=== PATIENT | male | born 2005 | race Caucasian/White ===

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

== ENCOUNTER 2023-06-16 12:35 | Emergency (ER) | payer BC, SELFPAY ==
[2023-06-16 12:42] VITALS: BP 136/75; PULSE 77; RESP 16; TEMP 36.4; O2SAT 100
--- NOTE | 2023-06-16 12:50 | ED.GENADULT ---
HPI - General Adult General Chief complaint: Skin/Abscess/Foreign Body Stated complaint: finger pain and swelling Time Seen by Provider: 06/16/23 12:55 Source: patient, RN notes reviewed and old records reviewed Mode of arrival: ambulatory Limitations: no limitations History of Present Illness HPI narrative: 17 year old male presents to express care with complaints of swelling and redness to the distal dorsal area of left middle finger around his nail bed since yesterday. Patient reports that it is very tender to the medial aspect of his nail bed area where tissue has purplish hue to tissue. Patient reports that he has had a previous occurrence of similar tissue swelling and redness with pain around one of his toes. Patient reports that he has been soaking his left middle finger in warm soapy water since doing so X2 Severity scale (1-10): 8 Pain Consistency: intermittent Relieving factors: immobilization Treatments prior to arrival: other (warm soaks) Related Data Home Medications Medication Instructions Recorded Confirmed guanfacine 1 mg tablet,extended 2 mg PO DAILY 06/16/23 06/16/23 release 24 hr levalbuterol tartrate 45 2 puff inhalation PRN PRN 06/16/23 06/16/23 mcg/actuation aerosol inhaler Shortness Of Breath Or Wheezing Allergies Allergy/AdvReac Type Severity Reaction Status Date / Time No Known Allergies Allergy Mild Verified 06/16/23 12:38 Review of Systems Review of Systems: CONSTITUTIONAL: Denies fever, chills, or sweats. CARDIOVASCULAR: Denies chest pain, palpitations, or edema. RESPIRATORY: Denies cough or dyspnea. GASTROINTESTINAL: Denies abdominal pain, nausea, vomiting SKIN: Reports redness and swelling with pain to his middle left nail bed MUSCULOSKELETAL: Denies myalgia. NEUROLOGIC: Denies headache, numbness All systems reviewed & are unremarkable except as noted in HPI and below PMFSH Past Medical History Medical History ADHD (attention deficit hyperactivity disorder) Asthma Seasonal allergies Family History Family History Other No acute medical problems Social History Social History Smoking status: Never smoker Living arrangements: with family Occupation/Education: student Gender identity (if verbalized by the patient): Male Comments At time of signature, agree with nursing past medical, surgical, social and family history. There is no relevant family history pertinent to the presenting complaint Exam Narrative: GENERAL: Well-appearing, well-nourished, and in no acute distress. HEAD: Normocephalic, atraumatic. EYES: PERRLA and EOMI. ENT: Nares clear, no rhinorrhea or epistaxis. Mucous membranes moist. NECK: Supple.no lymphadenopathy CHEST: Clear to auscultation. No respiratory distress. SAO2 100% on room air HEART: Regular rate and rhythm. No murmur heard. Normal peripheral pulses. ABDOMEN: Soft, nontender, nondistended, normal active bowel sounds. EXTREMITIES: Normal range of motion. No edema. SKIN: Warm, dry. Erythema, induration, tenderness, to tissue medial aspect of left middle finger nail bed with fluctuance of tissue noted. see procedure note. NEURO: No focal deficits. Alert and oriented x3. Course Course Emergency Course: Patient is aware of diagnosis, understands and agrees to treatment plan. Anticipatory guidance given. Patient agrees to follow-up as directed and is aware of reasons to seek care at the emergency department. Portions of this record may have been created with voice recognition software Level of Care: Express Care Visit Vital Signs Vital signs: Vital Signs Temperature 36.4 C L 06/16/23 12:42 Pulse Rate 77 06/16/23 12:42 Respiratory Rate 16 06/16/23 12:42 Blood Pressure 136/75 06/16/23 12:42 Pulse Oximetry 100 06/16/23 12:42 Oxygen De
== END 2023-06-16 13:07 | disposition home or self-care (01) ==
PROVIDERS: Emergency Provider Registered Nurse; PCP Registered Nurse
DX: L03.012 Cellulitis of left finger (principal)
CPT/HCPCS: 10060; 99213; G0463

== ENCOUNTER 2024-04-06 18:18 | Emergency (ER) | payer BC, OTHER, SELFPAY ==
[2024-04-06 18:35] VITALS: BP 142/81; PULSE 61; RESP 18; TEMP 36.6; O2SAT 100
--- NOTE | 2024-04-06 19:14 | ED.URI ---
HPI - URI/Sore Throat General Chief Complaint: Upper Respiratory Infection Stated Complaint: rash, nasal congestion Time Seen by Provider: 04/06/24 19:14 Source: patient and RN notes reviewed Mode of arrival: ambulatory Limitations: no limitations History of Present Illness HPI Narrative: 18-year-old male with a history of asthma presented for complaint of nasal congestion, cough, and fatigue for about 5 days. Endorses congestion is worse in the mornings, and reports some sob with exertion. Denies wheezing, chest pain or palpitations. Has taken Sudafed which caused a headache. Pt also reports chigger bites to lower legs for about one week. Has been applying 'chigger cream' with improvement in itching, but has been scratching them in his sleep. Denies any swelling or pain to the sites. MD elicited complaint: cough Related Data Home Medications Medication Instructions Recorded Confirmed levalbuterol tartrate 45 2 puff inhalation PRN PRN 06/16/23 04/06/24 mcg/actuation aerosol inhaler Shortness Of Breath Or Wheezing Allergies Allergy/AdvReac Type Severity Reaction Status Date / Time No Known Allergies Allergy Mild Verified 06/16/23 12:38 Review of Systems Review of Systems: CONSTITUTIONAL: Endorses malaise, denies chills, sweats, fever EYES: Denies visual changes, redness, or discharge ENT: Reports rhinorrhea, congestion, denies sinus pain, otalgia, sore throat CARDIOVASCULAR: Denies chest pain, palpitations, edema RESPIRATORY: Reports cough, dyspnea with exertion GASTROINTESTINAL: Denies abdominal pain, nausea, vomiting, diarrhea SKIN: reports itching MUSCULOSKELETAL:denies myalgia NEUROLOGIC: Denies headache PMFSH Past Medical History Medical History ADHD (attention deficit hyperactivity disorder) Asthma Seasonal allergies Family History Family History Other No acute medical problems Social History Social History Smoking status: Never smoker Living arrangements: with family Occupation/Education: student Gender identity (if verbalized by the patient): Male Exam Narrative: GENERAL: well-appearing EYES: conjunctivae clear ENT: Mucous membranes moist. TMs pearly duncan with dull light reflex bilaterally; no tragal tenderness. Oropharynx not erythematous without lesions or exudate, no drooling, no hoarseness, no trismus, uvula midline. CHEST: Clear to auscultation, breath sounds equal. No wheezing, rhonchi, rales, or stridor. No respiratory distress, speaks in full sentences. HEART: Regular rate and rhythm. No murmur heard. SKIN: Warm, dry, Many scattered round red/darkened lesions to lower legs c/w insect bites, appear healing; no drainage, warmth or ttp. NEURO: Alert and oriented x3. PSYCH: Normal mood and affect Course Course Emergency Course: Patient is aware of diagnosis, understands and agrees to treatment plan. Anticipatory guidance given. Patient agrees to follow-up as directed and is aware of reasons to seek care at the emergency department. Portions of this record may have been created with voice recognition software Level of Care: Express Care Visit Vital Signs Vital signs: Vital Signs Temperature 97.9 F 04/06/24 18:35 Pulse Rate 61 04/06/24 18:35 Respiratory Rate 18 04/06/24 18:35 Blood Pressure 142/81 H 04/06/24 18:35 Pulse Oximetry 100 04/06/24 18:35 Oxygen Delivery Room Air 04/06/24 18:35 Temperature 97.9 F 04/06/24 18:35 Pulse Rate 61 04/06/24 18:35 Respiratory Rate 18 04/06/24 18:35 Blood Pressure 142/81 H 04/06/24 18:35 Pulse Oximetry 100 04/06/24 18:35 Oxygen Delivery Room Air 04/06/24 18:35 reviewed MDM - URI/Sore Throat MDM Narrative Medical decision making narrative: Discussed physical exam findings, COVID negative. Recommend steroid prescript
== END 2024-04-06 19:29 | disposition home or self-care (01) ==
PROVIDERS: Emergency Provider Nurse Practitioner Family; PCP Registered Nurse
DX: J06.9 Acute upper respiratory infection, unspecified (principal); S80.862A Insect bite (nonvenomous), left lower leg, initial encounter; S80.861A Insect bite (nonvenomous), right lower leg, initial encounter; W57.XXXA Bitten or stung by nonvenomous insect and other nonvenomous arthropods, initial encounter; J45.909 Unspecified asthma, uncomplicated
CPT/HCPCS: 87426; 99213; G0463

== ENCOUNTER 2024-05-27 17:43 | Emergency (ER) | payer BC, OTHER, SELFPAY ==
--- NOTE | ~2024-05-27 | XR_ITS ---
EXAM: XR finger 2nd RT min 2V DATE: 05/27/2024 17:59 HISTORY: smashed finger in car door -pain over PIP . COMPARISON: None available. FINDINGS: Normal mineralization. No fracture or dislocation. No lytic or blastic lesion. Joint space s and physes are maintained. No erosion or periosteal change. Soft tissues within normal limits. IMPRESSION: No acute osseous finding in the right second finger. Reviewed, dictated and finalized at location K.
--- NOTE | 2024-05-27 17:47 | ED.UPPEXIN ---
HPI - Extremity Injury (Upper) General Chief Complaint: Extremity Injury, Upper Stated Complaint: finger injury Time Seen by Provider: 05/27/24 17:46 Source: patient Mode of arrival: ambulatory Limitations: no limitations History of Present Illness HPI narrative: Pilo is a 18-year-old male patient presenting to the clinic today with complaints a right index finger injury. He reports he smashed his finger in a car door at 3:30 pm today. Is reporting pain over the PIP joint of the right index finger with a bruise, superficial laceration, and blood blister noted. Tetanus is up-to-date Related Data Home Medications Medication Instructions Recorded Confirmed No Home Medications 05/27/24 05/27/24 Allergies Allergy/AdvReac Type Severity Reaction Status Date / Time No Known Allergies Allergy Mild Verified 05/27/24 17:54 Review of Systems Review of Systems: Pertinent positives per HPI. Patient denies any fever, chills, rash, headache, visual changes, dizziness, cough, runny nose, sore throat, shortness of breath, chest pain, palpitations, nausea, vomiting, diarrhea, constipation, abdominal pain, or any urinary issues. PMFSH Past Medical History Medical History ADHD (attention deficit hyperactivity disorder) Asthma Seasonal allergies Family History Family History Other No acute medical problems Social History Social History Smoking status: Never smoker Living arrangements: with family Occupation/Education: student Gender identity (if verbalized by the patient): Male Comments At the time of my signature, I reviewed and agree with the nursing past medical, surgical, social, and family history. There is no relevant family history pertinent to the patient complaint. Exam Narrative: General: Well-developed, well nourished, in no apparent distress Head: Normocephalic, atraumatic. Cardio: Regular rate and rhythm, s1 and s2 normal, no murmur appreciated. Resp: Clear to auscultation bilaterally, no rhonchi, rales, wheezing or rubs. Musculoskeletal: No deformity, tender to palpation over the right index PIP joint, grossly normal range of motion, muscle strength strong and equal, peripheral pulse strong, no edema, no cyanosis, normal gait and station Integumentary: [place], warm, and dry, mild bruising with blood blister noted to the dorsal aspect of the PIP joint of the right index finger, superficial laceration measuring approximately 0.5 cm to the proximal lateral dorsal finger Course Course Emergency Course: Portions of this record may have been created with voice recognition software. Level of Care: Express Care Visit Vital Signs Vital signs: Vital Signs Temperature 36.3 C L 05/27/24 17:51 Pulse Rate 87 05/27/24 17:51 Respiratory Rate 18 05/27/24 17:51 Blood Pressure 136/79 05/27/24 17:51 Pulse Oximetry 100 05/27/24 17:51 Oxygen Delivery Room Air 05/27/24 17:51 Temperature 36.3 C L 05/27/24 17:51 Pulse Rate 87 05/27/24 17:51 Respiratory Rate 18 05/27/24 17:51 Blood Pressure 136/79 05/27/24 17:51 Pulse Oximetry 100 05/27/24 17:51 Oxygen Delivery Room Air 05/27/24 17:51 Vital signs reviewed MDM - Extremity Injury (Upper) MDM Narrative Medical decision making narrative: At the time of visit patient is resting comfortably on the exam table. Patient appears to be nontoxic. Diagnostics: X-ray of the right index finger was performed and was negative for any sign of fracture. Plan: I suspect patient has a superficial laceration, contusion/crush injury, and blood blister. Laceration is not in need of repair in tetanus is up-to-date per patient Supportive measures were discussed with the patient and they voiced understanding discharge instructions and agrees to treatment p
[2024-05-27 17:51] VITALS: BP 136/79; PULSE 87; RESP 18; TEMP 36.3; O2SAT 100
== END 2024-05-27 18:23 | disposition home or self-care (01) ==
PROVIDERS: Emergency Provider Nurse Practitioner Family; PCP Registered Nurse
DX: S60.021A Contusion of right index finger without damage to nail, initial encounter (principal); W23.0XXA Caught, crushed, jammed, or pinched between moving objects, initial encounter
CPT/HCPCS: 73140; 99213; G0463

== ENCOUNTER 2024-08-27 14:27 | Emergency (ER) | payer BC, SELFPAY ==
[2024-08-27 14:39] VITALS: BP 146/80; PULSE 101; RESP 18; TEMP 36.2; O2SAT 98
--- NOTE | 2024-08-27 15:22 | ED_ITS ---
HPI - URI/Sore Throat General Chief Complaint: Upper Respiratory Infection Stated Complaint: Flu like symptoms Time Seen by Provider: 08/27/24 15:22 Source: patient, RN notes reviewed and old records reviewed Mode of arrival: ambulatory Limitations: no limitations History of Present Illness HPI Narrative: 19-year-old male presents to the [facility] with 3 day history of body aches, fatigue, head congestion and a cough. Also requesting a refill on his albuterol. Onset (ago): day(s) (3) Related Data Allergies Allergy/AdvReac Type Severity Reaction Status Date / Time No Known Allergies Allergy Mild Verified 05/27/24 17:54 Review of Systems Review of Systems: All systems reviewed & are unremarkable except as noted in HPI and below Constitutional: Constitutional: Reports as per HPI and Reports body ache(s) ENT: Reports as per HPI Cardiovascular: Cardiovascular: Reports no additional cardiovascular complai nts, Denies chest pain and Denies dyspnea Respiratory: Respiratory: Reports as per HPI, Reports chest congestion, Reports cough, Denies dyspnea and Reports wheezing Musculoskeletal: Musculoskeletal: Reports no additional musculoskeletal complaints Integumentary/Breasts: Skin/Breast: Reports system reviewed and no additional complaints, except as docu PMFSH Past Medical History Medical History ADHD (attention deficit hyperactivity disorder) Seasonal allergies Asthma Family History Family History Other No acute medical problems Social History Social History Smoking status: Never smoker Living arrangements: with family Occupation/Education: student Gender identity (if verbalized by the patient): Male Comments At the time of my signature, I reviewed and agree with the nursing past medical, surgical, social, and family history. There is no relevant family history pertinent to the patient complaint. Exam Const: General: cooperative, healthy appearing, comfortable, no acute distress, well developed, alert and well nourished Nutritional Appearance: well nourished Orientation/consciousness: patient oriented x3 Limitations: no limitations HENMT: Head: normal to inspection Ears: hearing grossly normal bilaterally, external ears normal, TM's normal bilaterally, EAC's normal, mastoids normal and no periauricular adenopathy Face/Nose/Sinus: normal facial exam and face symmetric Face and sinus: normal facial exam and face symmetric Mouth: Yes Normal oral and palatal mucosa present, Yes lip normal, Yes tongue normal and Yes moist mucous membranes Throat: posterior oropharynx normal, uvula midline, postnasal drainage and no uvular edema Eyes: General: appearance normal, both eyes and all related structures Neck: Neck: normal visual inspection, full ROM, no lymphadenopathy and no meningeal signs Chest: Chest palpation & inspection: normal inspection of the chest Resp: Effort & Inspection: normal respiratory effort and able to speak in complete sentences Auscultation: clear to auscultation bilaterally, no crackles, no rales, no rhonchi and no wheezes Cardio: Rate: regular rate Skin: General skin exam: normal color and no rashes or lesions noted Neuro: General: patient oriented x3, gait normal, moves all extremities and no meningeal signs Cognition (Neuro): normal cognition Speech: normal speech Gait exam (Neuro): Normal gait present Extrem: General: normal to inspection, full ROM, capillary refill normal and normal gait Psych: Appearance: grossly normal and well kempt Mental Status: mental status grossly normal Speech and movement: Normal speech and movement present and Clear speech present Affect: normal affect Attitude: cooperative Course Course Level of Care: Express Care Visit Vital Signs Vital signs: Vital Signs Temperature 97.2 F L 08/27/24 14:39 Pulse Rate 101 H 08/27/24 14:39 Respiratory Rate 18 08/27/24 14:39 Blood Pressure 146/80 H 08/27/24 14:39 Pulse Oximetry 98 08/27/24 14:39 Oxygen Delivery Room Air 08/27/24 14:39 Temperature 97.2 F L 08/27/24 14:39 Pulse Rate 101 H 08/27/24 14:39 Respiratory Rate 18 08/27/24 14:39 Blood Pressure 146/80 H 08/27/24 14:39 Pulse Oximetry 98 08/27/24 14:39 Oxygen Delivery Room Air 08/27/24 14:39 Reviewed MDM - URI/Sore Throat MDM Narrative Medical decision making narrative: Patient sitting in exam room. Nontoxic, vitals stable. Patient in no acute distress. Patient presents with 3 day history of viral URI symptoms. Also requesting a refill for his albuterol. Patient tested negative for COVID. Tested positive for influenza A. Patient is appropriate for outpatient treatment and follow-up Discharge instructions reviewed with patient, as well as provided in writing per nursing staff. The instructions also include specific and strict return/GO TO THE ER as well as f/u information. All questions have been answered, and the patient deny any further questions with discharge and discharge plan. Some parts of this dictation were generated by voice recognition software and may contain typographical and/or grammatical inaccuracies. Differential Diagnosis Differential diagnosis: Likely upper respiratory infection, otitis media, sinusitis, viral infection and influenza Lab Data Labs: Lab Results 08/27/24 Range/Units 15:31 POC Influenza A Ag Positive (Negative) POC Influenza B Ag Negative (Negative) POC SARS CoV-2 Ag Negative (Negative) Reviewed Critical Care Time Critical Care Time Critical Care Time: No Discharge Plan Discharge Clinical Impression: Influenza A Patient Disposition: Home, Self-Care Condition: Stable Instructions: Antibiotic Form, Influenza (ED) Additional Instructions: Your rapid COVID test were negative Your rapid flu test was positive for influenza A. Your symptoms are likely due to a viral illness, which is not treated with antibiotics. Typically viral infections last 7-10 days, can linger for couple of weeks. It is very important to treat your symptoms. Drink plenty of water, Gatorade, Pedialyte, ice pops or Jell-O. -Alternate Tylenol and Motrin per package directions for fever or pain. You can alternate every 4 hours -Antihistamine medication such as Benadryl at night and Zyrtec/Claritin/Concha during the day can help improve symptoms. -doing daily nasal irrigations can help relieve pressure your sinuses. Things like a Neti pot -Use Flonase twice a day for 5 days then daily to help reduce the inflammation and dry up your sinuses. -You can also use Mucinex. Be sure to drink plenty of water with this me dication at least 8 ounces with every dose and it is important to drink 8 to 10 glasses of water per day. Water is a natural decongestant -Eat and drink things that are easy to swallow, like tea or soup, or popsicles. -Oral rinses such as: Salt water gargles and/or may use topical anesthetic (eg. Chloraseptic spray) or lozenges to relieve dryness or throat pain). -Frequent hand washing or hand spareribs trimmer is one of the best ways to prevent spread of infection. -Using a vaporizer or humidifier at night will also help thin secretions and help with coughing up phlegm. -Follow up with primary care provider in 7-10 days if condition is not improving - For new or worsening symptoms go directly to the nearest ER Patient Language: [place] Prescriptions: New albuterol sulfate 90 mcg/actuation HFA aerosol inhaler 2 puff inhalation QID PRN (Reason: shortness of breath or wheezing) Qty: 6.7 0RF Follow-up/Referrals: Ling,CHERYL Parra [Primary Care Provider] - 1 Week ([facility] follow-up) Stand Alone Forms: Work/School Release IP Time of Disposition: 15:28
[2024-08-27 15:33] LABS: EDCOVIDSCREEN Negative (Negative); EDINFLUASCREEN Positive (Negative); EDINFLUBSCREEN Negative (Negative)
== END 2024-08-27 15:47 | disposition home or self-care (01) ==
PROVIDERS: Emergency Provider Nurse Practitioner; PCP Registered Nurse
DX: J10.1 Influenza due to other identified influenza virus with other respiratory manifestations (principal); Z20.822 Contact with and (suspected) exposure to COVID-19; J45.909 Unspecified asthma, uncomplicated
CPT/HCPCS: 87426; 87804; 99213; G0463

== ENCOUNTER 2025-02-16 09:28 | Emergency (ER) | payer MEDICAID, SELFPAY ==
--- NOTE | 2025-02-16 09:37 | ED.URI ---
HPI - URI/Sore Throat General Chief Complaint: Upper Respiratory Infection Stated Complaint: Sinus Infection Time Seen by Provider: 02/16/25 09:38 Source: patient Mode of arrival: ambulatory Limitations: no limitations History of Present Illness HPI Narrative: Pilo is a 19-year-old male patient presenting to the clinic today with complaints of possible sinus infection x5 days. He reports he is having sinus headaches, nonproductive cough, ear pressure, nasal congestion, sore throat, and some body aches. He reports symptoms have been going on for the past 5 days. Thinks he may have a sinus infection. No known fevers. History of asthma and has been using his inhaler. Denies any shortness of breath or chest pain at this time. Related Data Home Medications ?Medication ?Instructions ?Recorded ?Confirmed ?Last Taken ?Type albuterol sulfate 90 mcg/actuation inhalation 02/16/25 Unknown History aerosol inhaler Allergies Allergy/AdvReac Type Severity Reaction Status Date / Time No Known Allergies Allergy Mild Verified 02/16/25 09:32 Review of Systems Review of Systems: Pertinent positives per HPI. Patient denies any fever, chills, rash, headache, visual changes, dizziness, shortness of breath, chest pain, palpitations, nausea, vomiting, diarrhea, constipation, abdominal pain, or any urinary issues. [facility] Past Medical History Medical History ADHD (attention deficit hyperactivity disorder) Seasonal allergies Asthma Family History Family History Other No acute medical problems Social History Social History Smoking status: Never smoker Living arrangements: with family Occupation/Education: student Gender identity (if verbalized by the patient): Male Comments At the time of my signature, I reviewed and agree with the nursing past medical, surgical, social, and family history. There is no relevant family history pertinent to the patient complaint. Exam Narrative: General: Well-developed, well nourished, in no apparent distress Head: Normocephalic, atraumatic Eyes: Pupils equally round and reactive to light bilaterally, EOM intact, sclera and conjunctive clear, no discharge, lids normal Ears: TMs intact and clear, ear canals clear, no drainage, grossly hearing normal. Nose: Nares patent, clear nasal discharge, mild inflammation, maxillary and frontal sinus tenderness. Mouth: Oral pharynx without lesions or masses, good dentition, MMM. Neck: Supple, trachea midline, no enlargement of anterior or posterior cervical nodes, no thyroid masses or goiter palpable. Cardio: Regular rate and rhythm, s1 and s2 normal, no murmur appreciated. Resp: Clear to auscultation bilaterally, no rhonchi, rales, wheezing or rubs Course Course Emergency Course: Portions of this record may have been created with voice recognition software. Level of Care: Express Care Visit Vital Signs Vital signs: Vital Signs Temperature 36.9 C 02/16/25 09:40 Pulse Rate 67 02/16/25 09:40 Respiratory Rate 14 02/16/25 09:40 Blood Pressure 140/82 02/16/25 09:40 Pulse Oximetry 100 02/16/25 09:40 Oxygen Delivery Room Air 02/16/25 09:40 Temperature 36.9 C 02/16/25 09:40 Pulse Rate 67 02/16/25 09:40 Respiratory Rate 14 02/16/25 09:40 Blood Pressure 140/82 02/16/25 09:40 Pulse Oximetry 100 02/16/25 09:40 Oxygen Delivery Room Air 02/16/25 09:40 Vital signs reviewed MDM - URI/Sore Throat MDM Narrative Medical decision making narrative: At the time of visit patient is resting comfortably on the exam table. Patient appears to be nontoxic. Labs: COVID and strep test was performed. We will send strep for culture. Plan: I suspect patient has URI with cough and congestion. Prescription for prednisone was sent to the pharmacy. Supportive measures were discussed with the patient and they voiced understanding discharge instructions and agrees to treatment plan. Return precautions reviewed Differential Diagnosis Differential diagnosis: Likely upper respiratory infection, otitis media, sinusitis, viral infection, bronchitis, influenza, pharyngitis and other (COVID) Lab Data Labs: Lab Results 02/16/25 02/16/25 Range/Units 09:51 10:02 POC SARS CoV-2 Ag Negative (Negative) POC Grp A Strep Screen Negative (Negative) Discharge Plan Discharge Clinical Impression: Upper respiratory infection with cough and congestion Patient Disposition: Home Condition: Stable Instructions: Antibiotic Form, Cold Symptoms (ED) Additional Instructions: COVID and strep test were negative. We will send strep for culture if this comes back positive we will contact him place you on antibiotics at that time. Take prescription medications only as prescribed-prednisone Increase fluids and stay well hydrated Tylenol/motrin for pain/fever Flonase and OTC antihistamines as directed Vicks vapor rub to open sinuses Sinus rinses for congestion Cepacol spray, cough drops, throat lozenges, warm tea with honey/lemon, gargle salt water to soothe throat BRAT diet for diarrhea Clear liquids x 24 hours then advance as tolerated for nausea/vomiting Go to the ED if you develop a worsening in your condition- high fever not controlled by Tylenol or Motrin, dehydration, weakness, lethargy, shortness of breath, or chest pain. Follow up with your PCP in 3-5 days if symptoms persist. Patient Language: Syriac Prescriptions: New prednisone 20 mg tablet 40 mg PO DAILY 5 Days Qty: 10 0RF No Action albuterol sulfate 90 mcg/actuation HFA aerosol inhaler INHALATION Follow-up/Referrals: Ling,CHERYL Parra [Primary Care Provider] - Stand Alone Forms: Work/School Release IP Time of Disposition: 10:00 Quality NIHSS Nursing Documentation ED NIHSS nursing documentation: reviewed/agree
[2025-02-16 09:40] VITALS: BP 140/82; PULSE 67; RESP 14; TEMP 36.9; O2SAT 100
[2025-02-16 09:53] LABS: EDSTREPNEGPOS1 Negative (Negative)
[2025-02-16 10:04] LABS: EDCOVIDSCREEN Negative (Negative)
--- OUTSIDE RECORDS SUMMARY | 2025-02-16 10:23 | XMS_ITS | Patient Health Record ---
Author Organization [facility] [place] ([address]) Address [address] [address] Care Team Providers Care Wood Scrap Handler Name Role Phone Gene Lubin Unavailable [phone] Allergies No Known Allergies Reason For Referral No Information Medications Medication SIG (Take, Route, Frequency, Duration) Notes Start Date End Date Status Fluticasone Propionate 50 MCG/ACT 2 spray(s) in each nostril BID for 30 day(s) 09/23/2022 Active AEROCHAMBER MDI SPACER - MOUTHPIECE (ADULT) N/A DIRECTED PO PER ASTHMA ACTION PLAN for 30 DAY(S) *Please review for potential replacement for e-prescription and drug interaction check* 09/23/2022 Active Trintellix 10 MG 1 tab(s) orally once a day Active Albuterol Sulfate (5 MG/ML) 0.5% 0.5 mL by nebulizer every 6 hours Xopenex Active Famotidine 20 MG 1 tab(s) orally 2 times a day Active TRINTELLIX 10 mg 1 tab(s) orally once a day Active FLUTICASONE NASAL 50 mcg/inh 2 spray(s) in each nostril BID for 30 day(s) 09/23/2022 Active ADVAIR DISKUS 250 mcg-50 mcg 1 INH inhaled 2 times a day for 30 day(s) 09/23/2022 Active Advair Diskus 250 MCG-50 MCG 1 INH INHALED 2 TIMES A DAY for 30 DAY(S) *Please review and pick correct strength-formulatio n from Medispan options. If intended option is not shown, discontinue and re-order from Quick Search* 09/23/2022 Active FAMOTIDINE 20 mg 1 tab(s) orally 2 times a day Active LEVALBUTEROL TARTRATE HFA 45 MCG/INH 2 PUFF(S) INHALED EVERY 4 HOURS for 30 DAY(S) *Please review for potential replacement for e-prescription and drug interaction check* 09/23/2022 Active ALBUTEROL 5 mg/mL 0.5 mL by nebulizer every 6 hours Xopenex Active Problems Problem Type SNOMED Code ICD Code Onset Dates Problem Status W/U Status Risk Notes Problem Chronic rhinitis (47210220) Chronic rhinitis (J31.0) Active confirmed Problem Hypertrophy of nasal turbinates (78206704) Hypertrophy of nasal turbinates (J34.3) Active confirmed Problem Uncomplicated moderate persistent asthma (687639906) Moderate persistent asthma, uncomplicated (J45.40) Active confirmed Problem Diarrhea (58815920) Diarrhea, unspecified (R19.7) Active confirmed Problem Chronic sinusitis (10047471) Chronic sinusitis, unspecified (J32.9) Active confirmed Plan Of Treatment No Information Insurance Providers Payer Name Payer Address Payer Phone Subscriber Number Group Number Insured Name Patient Relationship to Insured Coverage Start Date Coverage End Date [facility] [address] [place] [address] [id number] Veronica Shabazz Child - Insured has Financial Responsibility [facility] [address] [address] [place], [place] [phone] [id number] Veronica Shabazz Child - Insured has Financial Responsibility Medical (General) History Medical History History ICD Code Pneumonia asthma Hospitalization History Reason Date(Month/Year) Sinus infection 06/2022 pneamonia 12/2021 asthma exacerbation 10/2021 pneaumonia 09/2021
--- OUTSIDE RECORDS SUMMARY | 2025-02-16 10:23 | XMS_ITS ---
Author Organization [employer] [place] ([address]) Address [address] [place] [id number] Care Team Providers Care Electric Detector Operator Name Role Phone Gene Lubin Unavailable [phone] [facility], Provider Unavailable Unavailab le REASON FOR VISIT Multum To Medispan Conversion Encounter Medications Medication SIG (Take, Route, Frequency, Duration) [...] tab(s) orally 2 times a day Active Advair Diskus 250 MCG-50 MCG 1 INH INHALED 2 TIMES A DAY for 30 DAY(S) *Please review and pick correct strength-formulatio n from Medispan options. If intended option is not shown, discontinue and re-order from Quick Search* 09/23/2022 Active LEVALBUTEROL TARTRATE HFA 45 MCG/INH 2 PUFF(S) INHALED EVERY 4 HOURS for 30 DAY(S) *Please review for potential replacement for e-prescription and drug interaction check* 09/23/2022 Active Encounters Encounter Location Date Provider Diagnosis [facility] [place] [address] 02/14/2024 Provider HUSSAIN-Migration Hypertrophy of nasal turbinates J34.3 and Moderate persistent asthma, uncomplicated J45.40 Assessments Encounter Date Diagnosis (ICD Code) Assessment Notes Treatment Notes Treatment Clinical Notes Section Notes 02/14/2024 Hypertrophy of nasal turbinates (ICD-10 - J34.3) 02/14/2024 Moderate persistent asthma, uncomplicated (ICD-10 - J45.40) Plan Of Treatment Medication Medication Name Sig Start Date Stop Date Notes Fluticasone Propionate 50 MCG/ACT 2 spray(s) in each nostril BID for 30 day(s) 09/23/2022 AEROCHAMBER MDI SPACER - MOUTHPIECE (ADULT) N/A DIRECTED PO PER ASTHMA ACTION PLAN for 30 DAY(S) 09/23/2022 *Please review for potential replacement for e-prescription and drug interaction check* Advair Diskus 250 MCG-50 MCG 1 INH INHALED 2 TIMES A DAY for 30 DAY(S) 09/23/2022 *Please review and pick correct strength-formulation from [employer] options. If intended option is not shown, discontinue and re-order from Quick Search* LEVALBUTEROL TARTRATE HFA 45 MCG/INH 2 PUFF(S) INHALED EVERY 4 HOURS for 30 DAY(S) 09/23/2022 *Please review for potential replacement for e-prescription and drug interaction check* Progress Notes * Piyush OROZCOOB:[birth year] (19 yo F)Acc No.[id number]:02/14/2024 Patient: Pilo LNUA Provider: Satinder Dooley :2005 A ge:18 Y S ex:Female Date:02/14/2024 Address:[address] [place] [address] , [place] [id number] Subjective: * Chief Complaints: * 1 . Multum To Medispan Conversion Encounter. * Medical History: * Medications: T aking Famotidine 20 MG Tablet 1 tab(s) orally 2 times a day , Taking Albuterol Sulfate (5 MG/ML) 0.5% Nebulization Solution 0.5 mL by nebulizer every 6 hours , Notes to Pharmacist: Xopenex, Taking Trintellix 10 MG Tablet 1 tab(s) orally once a day Objective: * Vitals: Assessment: * Assessment: 1. H ypertrophy of nasal turbinates - J34.3 (Primary) 2 . M oderate persistent asthma, uncomplicated - J45.40 Plan: * Treatment: 2. M oderate persistent asthma, uncomplicated Start AEROCHAMBER MDI SPACER - MOUTHPIECE (ADULT) SPACER FOR MDI USE, N/A, DIRECTED, PO, PER ASTHMA ACTION PLAN, 30 DAY(S), 1, Refills 11, Notes to Pharmacist: *Please review for potential replacement for e-prescription and drug interaction check*; S tart LEVALBUTEROL TARTRATE HFA AEROSOL, 45 MCG/INH, 2 PUFF(S), INHALED, EVERY 4 HOURS, 30 DAY(S), Notes to Pharmacist: *Please review for potential replacement for e-prescription and drug interaction check*; S tart Advair Diskus POWDER, 250 MCG-50 MCG, 1 INH, INHALED, 2 TIMES A DAY, 30 DAY(S), Notes to Pharmacist: *Please review and pick correct strength-formulation from [employer] options. If intended option is not shown, discontinue and re-order from Quick Search*. * Billing Information: * Visit Code: * Procedure Codes: * Electronic signature of Libia NIXON-Migration on 02/16/2025 at 10:23 AM CDT Sign off status: Pending * Provider: Satinder batres Migration Date: 02/14/2024 Generated for Seda millard/Gilberto/Yaquelinitting on: 02/16/2025 10:23 AM CDT
== END 2025-02-16 10:03 | disposition home or self-care (01) ==
PROVIDERS: Emergency Provider Nurse Practitioner Family; PCP Registered Nurse
DX: J06.9 Acute upper respiratory infection, unspecified (principal); R05.9 Cough, unspecified; Z20.822 Contact with and (suspected) exposure to COVID-19; J45.909 Unspecified asthma, uncomplicated
CPT/HCPCS: 87081; 87426; 87880; 99213; G0463

== ENCOUNTER 2025-07-19 10:24 | Emergency (ER) | payer OTHER, SELFPAY ==
--- NOTE | 2025-07-19 10:28 | ED_ITS ---
HPI - Skin/Abscess/Foreign Bdy General Chief complaint: Skin/Abscess/Foreign Body Stated complaint: Skin Time Seen by Provider: 07/19/25 10:26 Source: patient Mode of arrival: ambulatory Limitations: no limitations History of Present Illness HPI narrative: patient is a 19-year-old male who presents with rash to forehead and bilateral wrists 3 days. 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 Reports extreme itching slight oozing. Denies any pain. Has been using cortisone cream with mild relief. Related Data Allergies Allergy/AdvReac Type Severity Reaction Status Date / Time No Known Allergies Allergy Mild Verified 07/19/25 10:28 Review of Systems Review of Systems: All systems reviewed & are unremarkable except as noted in HPI and below Constitutional: Constitutional: Denies body ache(s), Denies chills, Denies fatigue, Denies fever(s), Denies headache(s), Denies malaise and Denies weakness Eyes: Eyes: Denies blurry vision, Denies irritation and Denies loss of vision ENT: Denies otalgia, Denies headache(s), Denies nasal discharge, Denies sinus pain and Denies sore throat Cardiovascular: Cardiovascular: Denies chest pain, Denies irregular heart rhythm and Denies dyspnea Respiratory: Respiratory: Denies dyspnea Gastrointestinal: Gastrointestinal: Denies abdominal pain, Denies melena, Denies hematochezia, Denies diarrhea, Denies nausea and Denies vomiting Musculoskeletal: Musculoskeletal: Denies back pain, Denies myalgias and Denies arthralgias Integumentary/Breasts: Skin/Breast: Reports pruritus and Reports rash Neurologic: Denies headache(s), Denies loss of vision and Denies weakness Psychiatric: Psychiatric: Reports no additional psychiatric complaints Endocrine: Endocrine: Denies fatigue PMFSH Past Medical History Medical History ADHD (attention deficit hyperactivity disorder) Seasonal allergies Asthma Family History Family History Other No acute medical problems Social History Social History Smoking status: Never smoker Living arrangements: with family Occupation/Education: student Gender identity (if verbalized by the patient): Male Comments At time of signature, agree with nursing past medical, surgical, social and family history. There is no relevant family history pertinent to the presenting complaint. Exam Const: General: cooperative, healthy appearing, comfortable, no acute distress and well nourished Nutritional Appearance: well nourished Orientation/consciousness: patient oriented x3 Limitations: no limitations HENMT: Head: normal to inspection, normocephalic and atraumatic Ears: hearing grossly normal bilaterally and external ears normal Face/Nose/Sinus: Normal external nose present, normal facial exam and face symmetric Face and sinus: normal facial exam and face symmetric Mouth: Yes lip normal Eyes: General: appearance normal, both eyes and all related structures Alignment and Position: alignment normal and position normal Periorbital: periorbital findings normal Eyelids: eyelids normal Pupils: Equal, round and reactive pupils present EOM: EOMs intact bilaterally Neck: Neck: normal visual inspection, full ROM and supple Chest: Chest palpation & inspection: normal inspection of the chest Resp: Effort & Inspection: normal respiratory effort and able to speak in complete sentences Auscultation: clear to auscultation bilaterally Cardio: Rate: regular rate Rhythm: regular rhythm Heart sounds: S1 normal heart sound present and S2 normal heart sound present GI: Inspection: normal to inspection Skin: General skin exam: normal color Rashes: rashes noted bilateral volar wrist arrangement grouped, borders sharp and irregular and surface erythematous, waxy and wet, right forehead arrangement grouped, borders sharp and irregular and surface erythematous, waxy and wet Neuro: General: patient oriented x3 and moves all extremities Cranial nerves: Yes Equal, round and reactive pupils present Speech: normal speech Gait exam (Neuro): Normal gait present Extrem: General: normal to inspection, full ROM and no edema Psych: Appearance: grossly normal and well kempt Mental Status: mental status grossly normal Speech and movement: Normal speech and movement present Affect: normal affect Attitude: cooperative Thought process: Normal thought process present Course Course Emergency Course: Patient is aware of diagnosis, understands and agrees to treatment plan. Anticipatory guidance given. Patient agrees to follow-up as directed and is aware of reasons to seek care at the emergency department. Portions of this record may have been created with voice recognition software Level of Care: Express Care Visit Vital Signs Vital signs: Reviewed MDM - Skin/Abscess/Foreign Bdy MDM Narrative Medical decision making narrative: exam consistent with poison jovana. Will treat with long taper of steroids. Pt well hydrated appearing, in no respiratory distress, hemodynamically stable. Recommend supportive care. The patient is stable at time of discharge the clinical impression was discussed and the patient was given the opportunity to ask questions, which were addressed as completely as possible given the inf ormation available at present. Anticipatory guidance and return to care precautions were discussed and the importance of primary care follow-up was stressed and encouraged. The patient voiced understanding of the plan, indications to return, and the need for follow-up. Exam findings show no acute concerns or changes Patient is appropriate for outpatient treatment and follow-up. Differential Diagnosis Differential diagnosis: Likely abscess of skin or subcutaneous tissue, urticaria, allergic reaction to drug, eczema, insect bites and contact dermatitis ( Poison jovana) Medical Records Attestation: I reviewed the patient's medical records. Discharge Plan Discharge Clinical Impression: Poison jovana dermatitis Patient Disposition: Home Condition: Stable Instructions: Poison Jovana (ED) Additional Instructions: Take steroids in the morning with food Prevention is always better than treatment. Learn to identify poison jovana, oak, and sumac and avoid it. Wear long sleeves, long pants, shoes, and socks. If you touched the plant, try to keep your hands away from your eyes, mouth, and face. Wash the skin thoroughly with soap and cool water as soon as possible. Scrub under the fingernails with a brush to prevent spreading of the resin to other parts of the body by touching or scratching. Remember to wash any clothing with soap and hot water as the resin can persist for many months and cause further dermatitis. You should NOT use antihistamine creams or lotions, anesthetic creams containing benzocaine, or antibiotic creams containing neomycin or bacitracin to the skin. These creams or ointments could make the rash worse. For some people, adding oatmeal to a bath, applying cool wet compresses, and applying calamine lotion may help to relieve itching. Once the blisters begin weeping fluid, astringents containing aluminum acetate (Burow's solution) and [place]omeboro may help to relieve the rash. IF symptoms get worse to follow up with your primary care provider or seek ER visit if you developing difficulty breathing, weakness, dizziness. Patient Language: Upper Sorbian Prescriptions: New prednisone 10 mg tablet See Rx Instructions .ROUTE .COMPLEX Qty: 35 0RF Rx Instructions: 40 mg daily for 5 days, 20 mg daily for 5 days, 10 mg daily for 5 days Follow-up/Referrals: Ling,CHERYL Parra [Primary Care Provider] - 3 Days Time of Disposition: 10:38
[2025-07-19 10:31] VITALS: BP 133/78; PULSE 60; RESP 18; TEMP 36.4; O2SAT 97
== END 2025-07-19 10:40 | disposition home or self-care (01) ==
PROVIDERS: Emergency Provider Nurse Practitioner Family; PCP Registered Nurse
DX: L23.7 Allergic contact dermatitis due to plants, except food (principal); J45.909 Unspecified asthma, uncomplicated
CPT/HCPCS: 99213; G0463